=== PATIENT | female | born 1955 | race Two or more races ===

== ENCOUNTER 2018-07-21 15:36 | Emergency (ER) | payer MEDICARE, OTHER ==
[~2018-07-21] VITALS: Ht 157.5 cm; Wt 63.5 kg
[~2018-07-21 15:36] MED LIST: AZITHROMYCIN250 MG ORAL; IBUPROFEN600 MG ORAL
[2018-07-21 16:00] VITALS: BP 133/83
--- NOTE | 2018-07-21 16:00 | NUR ---
ED Nurse Note: pt walked in to ED with family member due to cp aw coughing, watery stool, and fever for 1 day. 99.6 F at the bed side. skin hot to touch. respirations even and non-labored noted. AAO x4. no n/v. on computer support technician. will wait for the further order.
[2018-07-21 16:23] LABS: APPEARANCE,URINE CLEAR; BILIRUBIN, URINE NEGATIVE (NEGATIVE); GLUCOSE, URINE (UA) NEGATIVE (NEGATIVE); KETONES,URINE 3+ (NEGATIVE); LEUKOCYTE ESTERASE ,URINE 1+ (NEGATIVE); NITRITE,URINE NEGATIVE (NEGATIVE); PH,URINE 5 (4.5-8.0); PROTEIN,URINE 1+ (NEGATIVE); UROBILINOGEN,URINE 1 MG/DL (0.0-1.0)
[2018-07-21 16:25] LABS: COLOR,URINE YELLOW
[2018-07-21 16:48] LABS: ANION GAP 12 mmol/L (5-15); BLOOD UREA NITROGEN 10 mg/dL (7-18); CALCIUM 8.8 MG/DL (8.5-10.1); CARBON DIOXIDE 23 MMOL/L (21-32); CHLORIDE 98 MMOL/L (98-107); CREATININE 0.7 MG/DL (0.55-1.30); POTASSIUM 4.7 MMOL/L (3.5-5.1); SODIUM 133 MMOL/L (136-145)
--- NOTE | 2018-07-21 16:49 | Diagnostic Imaging Report ---
Indication: Cough Technique: One view of the chest Comparison: 06/26/2016 Findings: Lungs and pleural spaces are clear. Heart size is normal. Cholecystectomy clips are incidentally noted. No significant interim change Impression: No acute process
[2018-07-21 16:53] LABS: ALANINE AMINOTRANSFERASE 22 U/L (12-78); ALBUMIN 3.8 G/DL (3.4-5.0); ALBUMIN/GLOBULIN RATIO 0.9 (1.0-2.7); ALKALINE PHOSPHATASE 65 U/L (46-116); ASPARTATE AMINO TRANSFERASE 32 U/L (15-37); BILIRUBIN,TOTAL 0.7 MG/DL (0.2-1.0)
[2018-07-21 17:30] VITALS: BP 116/71
[2018-07-21 17:31] LABS: BASOPHILS % (AUTO) 1.6 % (0.0-2.0); EOSINOPHILS % (AUTO) 0.1 % (0.0-3.0); HEMATOCRIT 36.9 % (37.0-47.0); HEMOGLOBIN 12.1 G/DL (12.0-16.0); LYMPHOCYTES % (AUTO) 29.8 % (20.0-45.0); MEAN CORPUSCULAR VOLUME 84 FL (80-99); MONOCYTES % (AUTO) 17.9 % (1.0-10.0); NEUTROPHILS % (AUTO) 50.6 % (45.0-75.0); PLATELET COUNT 164 K/UL (150-450); RED BLOOD COUNT 4.36 M/UL (4.20-5.40); RED CELL DISTRIBUTION WIDTH 12.6 % (11.6-14.8); WHITE BLOOD COUNT 4.2 K/UL (4.8-10.8)
--- NOTE | 2018-07-21 18:26 | NUR ---
ED Nurse Note: pt lying in bed comfortably without facial grimacing or moaning noted. on court recording monitor. will wait for the further order.
--- NOTE | 2018-07-21 18:56 | Emergency Room Report ---
History of Present Illness General Chief Complaint: Upper Respiratory Illness Source: Patient Present Illness HPI This patient is accompanied by her daughter. The patient states that she has had congestion and cough for the past day. She is also had fever and chills. She states she has had a repetitive cough and has been fatigued. At this time. She states that when she coughs she does have chest pressure. Denies abdominal pain. Denies dysuria hematuria. Denies nausea or vomiting. She denies headache or neck pain. She has no other complaints. Allergies: Coded Allergies: No Known Allergies (Unverified , 06/26/16) Patient History Past Medical History: see triage record, DM Social History: Denies: smoking, alcohol use, drug use Now: No Reviewed Nursing Documentation: PMH: Agreed; PSxH: Agreed Nursing Documentation-PMH Past Medical History: No Stated History Hx Diabetes: Yes - PRE DIABETIC Physical Exam Vital Signs Date Time Temp Pulse Resp B/P (MAP) Pulse Ox O2 Delivery O2 Flow Rate FiO2 07/21/18 15:45 99.7 111 16 117/75 94 Room Air Medical Decision Making Diagnostic Impression: Primary Impression: Influenza A (H1N1) Additional Impression: UTI (urinary tract infection) ER Course This patient has a clinical presentation consistent with influenza. Patient overall is nontoxic with no evidence of pneumonia on chest x-ray. There does not appear to be any emergency complications. Do not feel this patient needs admission at this time. The patient stable vital signs. I will give the patient a course of Tamiflu. The patient given close return precautions and followup instructions. Laboratory Tests Test 07/21/18 16:05 07/21/18 16:28 07/21/18 17:15 Urine Color Yellow Urine Appearance Clear Urine pH 5 (4.5-8.0) Urine Specific Lind 1.020 (1.005-1.035) Urine Protein 1+ (NEGATIVE) H Urine Glucose (UA) Negative (NEGATIVE) Urine Ketones 3+ (NEGATIVE) H Urine Blood 3+ (NEGATIVE) H Urine Nitrite Negative (NEGATIVE) Urine Bilirubin Negative (NEGATIVE) Urine Urobilinogen 1 MG/DL (0.0-1.0) H Urine Leukocyte Esterase 1+ (NEGATIVE) H Urine RBC 5-10 /HPF (0 - 2) H Urine WBC 2-4 /HPF (0 - 2) Urine Squamous Epithelial Cells Few /LPF (NONE/OCC) Urine Amorphous Sediment Few /LPF (NONE) H Urine Bacteria Moderate /HPF (NONE) H Sodium Level 133 MMOL/L (136-145) L Potassium Level 4.7 MMOL/L (3.5-5.1) Chloride Level 98 MMOL/L (98-107) Carbon Dioxide Level 23 MMOL/L (21-32) Anion Gap 12 mmol/L (5-15) Blood Urea Nitrogen 10 mg/dL (7-18) Creatinine 0.7 MG/DL (0.55-1.30) Estimate Glomerular Filtration Rate > 60 mL/min (>60) Glucose Level 112 MG/DL (74-106) H Calcium Level 8.8 MG/DL (8.5-10.1) Total Bilirubin 0.7 MG/DL (0.2-1.0) Aspartate Amino Transferase (AST) 32 U/L (15-37) Alanine Aminotransferase (ALT) 22 U/L (12-78) Alkaline Phosphatase 65 U/L (46-116) Troponin I 0.000 ng/mL (0.000-0.056) Total Protein 7.9 G/DL (6.4-8.2) Albumin 3.8 G/DL (3.4-5.0) Globulin 4.1 g/dL Albumin/Globulin Ratio 0.9 (1.0-2.7) L White Blood Count 4.2 K/UL (4.8-10.8) L Red Blood Count 4.36 M/UL (4.20-5.40) Hemoglobin 12.1 G/DL (12.0-16.0) Hematocrit 36.9 % (37.0-47.0) L Mean Corpuscular Volume 84 FL (80-99) Mean Corpuscular Hemoglobin 27.6 PG (27.0-31.0) Mean Corpuscular Hemoglobin Concent 32.7 G/DL (32.0-36.0) Red Cell Distribution Width 12.6 % (11.6-14.8) Platelet Count 164 K/UL (150-450) Mean Platelet Volume 6.8 FL (6.5-10.1) Neutrophils (%) (Auto) 50.6 % (45.0-75.0) Lymphocytes (%) (Auto) 29.8 % (20.0-45.0) Monocytes (%) (Auto) 17.9 % (1.0-10.0) H Eosinophils (%) (Auto) 0.1 % (0.0-3.0) Basophils (%) (Auto) 1.6 % (0.0-2.0) Microbiology Date/Time Source Procedure Growth Status 07/21/18 16:15 Nasal Nares Influenza Types A,B Antigen ([facility]) - Final Complete EKG Diagnostic Results Rate: tachycardiac Rhythm: other - S.tachy ST Segments: no acute changes Rhythm Strip Diag. Results EP Interpretation: yes Rate: 100's Rhythm: no PVC's, no ectopy, other - S.tachycardia Chest X-Ray Diagnostic Results Chest X-Ray Diagnostic Results : Chest X-Ray Ordered: Yes # of Views/Limited/Complete: 1 View Indication: Other - cough EP Interpretation: Yes Interpretation: no consolidation, no effusion, no pneumothorax, no acute cardiopulmonary disease Impression: No acute disease Electronically Signed by: Erendira Briones DO Last Vital Signs Date Time Temp Pulse Resp B/P (MAP) Pulse Ox O2 Delivery O2 Flow Rate FiO2 07/21/18 17:30 98.5 85 18 116/71 96 Room Air Status: improved Disposition: HOME, SELF-CARE Condition: Improved Referrals: NON PHYSICIAN (PCP) Erendira Briones DO Jul 21, 2018 18:56
[2018-07-21] MEDS ORDERED: ROBITUSSIN NIG237 ML PO (19:08)
[2018-07-21] MEDS ORDERED: NITROFURANTOIN100 M2 ORAL (19:08)
[2018-07-21] MEDS ORDERED: TAMIFLU75 MG ORAL (19:08)
[2018-07-21 19:13] VITALS: BP 104/61
--- NOTE | 2018-07-21 19:15 | NUR ---
ED Nurse Note: Patient is being discharged from medical care with daughter. prescription provide as ordered. Awake, alert and oriented x3. All medical devices such as IV and ID band were removed. Patient ambulated out with all personal belongings with steady gait.
== END 2018-07-21 19:15 | disposition home or self-care (01) ==
LOC: EMR 16:25
DX: J11.1 Influenza due to unidentified influenza virus with other respiratory manifestations (principal); N39.0 Urinary tract infection, site not specified; E11.9 Type 2 diabetes mellitus without complications
CPT/HCPCS: 36415; 71045; 80053; 81003; 84484; 85025; 86710; 87040; 87086; 93005; 96360; 99284